=== PATIENT | female | born 1975 | race Caucasian/White ===

== ENCOUNTER 2022-01-12 22:03 | Emergency (ER) | payer OTHER ==
[~2022-01-12] VITALS: Ht 167.6 cm; Wt 111.1 kg
--- NOTE | 2022-01-12 23:02 | NUR ---
TO ER BED 6. BIBS C/O LEFT FLANK PAIN RADIATING TO LOWER ABDOMEN SINCE 11AM. HX KIDNEY STONES. PT TOOK TYLENOL WITH NO RELIEF. PAIN IS 10/10 ON P/S. ALERT AND ORIENTED. AMBILATORY WITH STEADY GAIT. BRATHING IS EVEN AND NON LABORED. CONNECTED TO MONITOR . AWAITING MD CASIANO
--- NOTE | 2022-01-12 23:03 | NUR ---
DR. MARCIA PARTIDA AT PT'S BEDSIDE
--- NOTE | 2022-01-12 23:04 | NUR ---
URINE COLLECTED AND SENT TO LAB
--- NOTE | 2022-01-12 23:04 | NUR ---
PT SIGNED WAIVER FORM
[2022-01-12] MEDS ORDERED: ONDANSETRON HCL/PF 4 MG/2 ML VIAL ONE (23:10)
[2022-01-12] MEDS ORDERED: MORPHINE SULFATE INJ 4 MG/ML DISP.SYRIN ONE (23:10)
--- NOTE | 2022-01-12 23:19 | NUR ---
IV LINE ESTABLISHED ,[id number]. BLOOD COLLECTED AND SENT TO LAB
--- NOTE | 2022-01-12 23:20 | NUR ---
ULTRASOUND AT BEDSIDE
[2022-01-12] MEDS ORDERED: IV NS 0.9% 500 ML BAG IV ONE (23:30)
[2022-01-12] MEDS ORDERED: MORPHINE SULFATE INJ 2 MG/ML DISP.SYRIN IV ONE (23:30)
[2022-01-12] MEDS ORDERED: ONDANSETRON HCL/PF 4 MG/2 ML VIAL IVP ONE (23:30)
[2022-01-12 23:38] LABS: BASOPHILS # (AUTO) 0.1 K/uL (0.0-0.2); EOSINOPHILS % (AUTO) 0.9 % (0.0-6.0); HEMATOCRIT 38 % (33-45); HEMOGLOBIN 12.6 g/dL (11.5-14.8); LYMPHOCYTES # (AUTO) 1.2 K/uL (0.8-4.8); LYMPHOCYTES % (AUTO) 9.5 % (20.0-44.0); MEAN CORPUSCULAR HGB CONC 33 g/dl (31.0-36.0); MEAN CORPUSCULAR VOLUME 86 fL (82-100); MONOCYTES # (AUTO) 1.1 K/uL (0.1-1.30); MONOCYTES % (AUTO) 8.5 % (2.0-12.0); NEUTROPHILS # (AUTO) 10.5 K/uL (1.8-8.9); NEUTROPHILS % (AUTO) 80.1 % (43.0-81.0); PLATELET COUNT (AUTO) 243 K/uL (150-450); RED BLOOD CELL COUNT(AUTO) 4.44 MIL/uL (4.0-5.2); WHITE BLOOD COUNT (AUTO) 13.1 K/uL (4.3-11.0)
[2022-01-12 23:57] LABS: BILIRUBIN,URINE NEGATIVE (NEGATIVE); COLOR,URINE YELLOW (YELLOW); LEUKOCYTE ESTERASE ,URINE NEGATIVE (NEGATIVE); NITRITE, URINE NEGATIVE (NEGATIVE); PH,URINE 5.5 (5.0-8.0); PROTEIN,URINE NEGATIVE (NEGATIVE); UGLUCOSE NEGATIVE (NEGATIVE); UROBILINOGEN,URINE 0.2 EU/dL (0.2)
[2022-01-12 23:58] LABS: RBC,URINE 21-50 /HPF (0-2)
[2022-01-12 23:59] LABS: BACTERIA,URINE Rare /HPF (None Seen); SQUAMOUS EPITHELIAL CELL,UR Few /HPF (None Seen)
[2022-01-13 00:01] LABS: ALBUMIN 3.6 g/dL (3.4-5.0); BILIRUBIN,DIRECT 0.2 mg/dL (0.0-0.2); BILIRUBIN,TOTAL 0.8 mg/dL (0.2-1.0); CALCIUM, SERUM 8.5 mg/dL (8.5-10.1); CREATININE 0.7 mg/dL (0.6-1.3); POTASSIUM 3.1 mmol/L (3.5-5.1); TOTAL PROTEIN, SERUM 7.3 g/dL (6.4-8.2)
--- NOTE | 2022-01-13 00:11 | NUR ---
PT TAKEN FOR CT SCAN
--- NOTE | 2022-01-13 00:12 | NUR ---
PT RETURNED TO ER BED [address]
--- NOTE | 2022-01-13 03:52 | NUR ---
CALLED [facility] TO F/U WITH CT ABDOMEN REPORT. STATED TOTAL ETA FOR REPORT TO BE READ IS 4 HOURS. AND WILL NOTIFY RADIOLOGIST TO READ REPORT AGAIN
[2022-01-13 05:44] VITALS: BP 131/70
== END 2022-01-13 05:45 | disposition home or self-care (01) ==
LOC: ER 22:09
DX: R10.2 Pelvic and perineal pain (principal); N88.8 Other specified noninflammatory disorders of cervix uteri; Z60.2 Problems related to living alone
CPT/HCPCS: 99284; 74176; 96374; 76856; 96375; 85025; 80048; 83690; 80076; 81001; 36415; 85730; J2270; J2405; J7040

== ENCOUNTER 2022-09-02 02:11 | Emergency (ER) | payer OTHER ==
[~2022-09-02] VITALS: Ht 167.6 cm; Wt 111.1 kg
[2022-09-02] MEDS ORDERED: IBUPROFEN 400 MG TABLET PO ONE (03:00)
[2022-09-02 03:05] LABS: BASOPHILS % (AUTO) 0.4 % (0.0-2.0); EOSINOPHILS % (AUTO) 6.3 % (0.0-6.0); HEMATOCRIT 41 % (33-45); HEMOGLOBIN 13.1 g/dL (11.5-14.8); LYMPHOCYTES # (AUTO) 2.3 K/uL (0.8-4.8); LYMPHOCYTES % (AUTO) 34.4 % (20.0-44.0); MEAN CORPUSCULAR HGB CONC 32 g/dl (31.0-36.0); MEAN CORPUSCULAR VOLUME 87 fL (82-100); MONOCYTES # (AUTO) 0.7 K/uL (0.1-1.30); MONOCYTES % (AUTO) 9.9 % (2.0-12.0); NEUTROPHILS # (AUTO) 3.2 K/uL (1.8-8.9); PLATELET COUNT (AUTO) 258 K/uL (150-450); RED BLOOD CELL COUNT(AUTO) 4.68 MIL/uL (4.0-5.2); WHITE BLOOD COUNT (AUTO) 6.6 K/uL (4.3-11.0)
[2022-09-02] MEDS ORDERED: IBUPROFEN 400 MG TABLET ONE (03:09)
[2022-09-02 03:17] LABS: CALCIUM, SERUM 8.4 mg/dL (8.5-10.1); CARBON DIOXIDE 29 mmol/L (21-32); CHLORIDE 104 mmol/L (98-107); CREATININE 0.6 mg/dL (0.6-1.3); GLUCOSE 104 mg/dL (74-106); SODIUM SERUM 141 mmol/L (136-145); UREA NITROGEN, BLOOD 17 mg/dL (7-18)
[2022-09-02 03:23] LABS: D-DIMER 0.19 mg/L(FEU (0.17-0.50)
[2022-09-02 03:25] LABS: ALANINE AMINOTRANSFERASE 33 U/L (12-78); ALBUMIN 3.7 g/dL (3.4-5.0); ALKALINE PHOSPHATASE 46 U/L (46-116); ASPARTATE AMINOTRANSFERASE 17 U/L (15-37); BILIRUBIN,DIRECT 0.1 mg/dL (0.0-0.2); BILIRUBIN,TOTAL 0.6 mg/dL (0.2-1.0); TOTAL PROTEIN, SERUM 7.2 g/dL (6.4-8.2)
[2022-09-02 03:59] VITALS: BP 141/89
--- NOTE | 2022-09-02 03:59 | NUR ---
Patient discharged to home in stable condition. Written and verbal after care instructions given. Patient verbalizes understanding of instruction.
== END 2022-09-02 04:00 | disposition home or self-care (01) ==
LOC: ER 02:12
DX: R07.89 Other chest pain (principal); I10 Essential (primary) hypertension; E11.9 Type 2 diabetes mellitus without complications; Z60.2 Problems related to living alone
CPT/HCPCS: 36415; 71045-TC; 80048-TC; 80076-TC; 83880; 84484-TC; 85025-TC; 85378-TC; 85730-TC